=== PATIENT | male | born 1965 | race Caucasian/White ===

== ENCOUNTER 2019-06-11 05:12 | Inpatient (IN) | payer OTHER ==
[2019-06-11] MEDS: LACTATED RINGER'S 1,000 ML IV (06:12)
[2019-06-11] MEDS: CEFAZOLIN 2 GM/50 ML (PMX) 50 ML IVPB (06:33)
[2019-06-11] MEDS ORDERED: ROCURONIUM 50 MG INJ ×2 (07:07→10:15)
[2019-06-11] MEDS ORDERED: SEVOFLURANE 15 MIN (07:07)
[2019-06-11] MEDS ORDERED: PROPOFOL 20 ML (07:07)
[2019-06-11] MEDS ORDERED: EPHEDrine 25 MG/5 ML SYG (07:07)
[2019-06-11] MEDS ORDERED: MIDAZOLAM 1 MG/ML 2 ML INJ (07:07)
[2019-06-11] MEDS ORDERED: LIDOCAINE 2% (SDV) 5 ML INJ (07:07)
[2019-06-11] MEDS ORDERED: SUCCINYLCHOLINE CHLORIDE 100 MG/5 ML SYG IV (07:07)
[2019-06-11] MEDS ORDERED: PROPOFOL 200 MG INJ (07:07)
[2019-06-11] MEDS ORDERED: FAMOTIDINE 20 MG INJ (07:41)
[2019-06-11] MEDS ORDERED: ONDANSETRON 4 MG INJ (07:41)
[2019-06-11] MEDS ORDERED: DEXAMETHASONE 4 MG/ML 5 ML INJ (07:41)
[2019-06-11] MEDS ORDERED: LABETALOL HCL 20MG INJ (08:13)
[2019-06-11] MEDS: POLYMYXIN/BACITRACIN 1L IRRIG (09:04)
[2019-06-11] MEDS: GELATIN SIZE 100 SPONGE (09:04)
[2019-06-11] MEDS: BUPIVACAINE 0.25% (MPF) 30 ML INJ (09:04)
[2019-06-11] MEDS: THROMBIN 5000 UNIT (RECOTHROM) VIAL ×2 (09:05)
[2019-06-11] MEDS ORDERED: HYDROmorphONE 2 MG/ML SYG (09:17)
[2019-06-11] MEDS ORDERED: LABETALOL HCL 20MG INJ IV (09:30)
[2019-06-11] MEDS ORDERED: EPHEDrine 25 MG/5 ML SYG IV (09:30)
[2019-06-11] MEDS ORDERED: hydrALAzine 20 MG INJ IV (09:30)
[2019-06-11] MEDS ORDERED: ONDANSETRON 4 MG INJ IV ×2 (09:30→11:30)
[2019-06-11] MEDS ORDERED: PROCHLORPERAZINE 10 MG INJ IV (09:30)
[2019-06-11] MEDS ORDERED: FENTAnyl 50 MCG/ML VIAL IV ×3 (09:30)
[2019-06-11] MEDS ORDERED: MEPERIDINE 25 MG INJ IV (09:30)
[2019-06-11] MEDS ORDERED: HYDROmorphONE 1 MG/5 ML IV SYRINGE IV ×2 (09:30)
[2019-06-11] MEDS ORDERED: NEOSTIGMINE 3 MG/3 ML SYRINGE (10:52)
[2019-06-11] MEDS ORDERED: GLYCOPYRROLATE 0.4 MG INJ (10:52)
[2019-06-11] MEDS ORDERED: PROCHLORPERAZINE 10 MG TAB PO (11:30)
[2019-06-11] MEDS ORDERED: NACL 0.9% 3 ML SYG IV (11:30)
[2019-06-11] MEDS ORDERED: NALOXONE (0.4 MG/ML) INJ IV (11:30)
[2019-06-11] MEDS ORDERED: TRIMETHOBENZAMIDE 100 MG/ML VIAL IM (11:30)
[2019-06-11] MEDS ORDERED: ACETAMINOPHEN 325 MG TAB PO (11:30)
[2019-06-11] MEDS ORDERED: DIAZEPAM 5 MG TAB PO (11:30)
[2019-06-11] MEDS ORDERED: DIAZEPAM 10 MG/2 ML SYG IM (11:30)
[2019-06-11] MEDS ORDERED: DIPHENHYDRAMINE 50 MG CAP PO (11:30)
[2019-06-11] MEDS ORDERED: ZOLPIDEM 5 MG TAB PO (11:30)
[2019-06-11] MEDS ORDERED: BETHANECHOL 25 MG TAB PO (11:30)
[2019-06-11] MEDS ORDERED: HYDROCODONE/APAP (5/325) TAB PO (11:30)
[2019-06-11] MEDS ORDERED: AL HYDROX/MG HYDROX/SIMETH 30 ML CUP PO (11:30)
[2019-06-11] MEDS: HYDROmorphONE 1 MG/5 ML IV SYRINGE IV (11:59)
[2019-06-11] MEDS: DIPHENHYDRAMINE 50 MG INJ IV (12:02)
[2019-06-11] MEDS: HYDROmorphONE 0.2 MG/ML PCA IV (12:06)
[2019-06-11] MEDS: DEXTROSE 5%-0.45% NACL 1,000 ML IV (16:13)
[2019-06-11] MEDS: CEPASTAT LOZENGE MT (18:30)
[2019-06-11] MEDS: RANITIDINE 150 MG TAB PO (20:35)
[2019-06-12 05:13] LABS: HEMATOCRIT 40.1 % (42.0-52.0); HEMOGLOBIN 13.5 g/dl (14.0-18.0)
[2019-06-12] MEDS: DEXTROSE 5%-0.45% NACL 1,000 ML IV ×2 (05:21→16:00)
[2019-06-12 05:32] LABS: ANION GAP 4 (5-13); BLOOD UREA NITROGEN 7 mg/dl (7-20); CALCIUM 8.5 mg/dl (8.4-10.2); CARBON DIOXIDE 27 mmol/L (21-31); CHLORIDE 104 mmol/L (97-110); Estimated GFR > 60 mL/min (>60); GLUCOSE 126 mg/dl (70-220); POTASSIUM 3.6 mmol/L (3.5-5.1); SODIUM 135 mmol/L (135-144)
[2019-06-12] MEDS: LACTATED RINGER'S 1,000 ML IV (07:00)
[2019-06-12] MEDS ORDERED: BETHANECHOL 25 MG TAB PO (08:00)
[2019-06-12] MEDS: ASCORBIC ACID 500 MG TAB PO (09:02)
[2019-06-12] MEDS: DOCUSATE SODIUM 100 MG CAP PO (09:03)
[2019-06-12] MEDS: RANITIDINE 150 MG TAB PO (09:03)
[2019-06-12] MEDS: FERROUS SULFATE (EC) 325 MG TAB PO ×2 (09:04→12:37)
[2019-06-12] MEDS: POTASSIUM CHLORIDE (SR) 10 MEQ TAB PO (09:04)
[2019-06-12] MEDS: HYDROCODONE/APAP (5/325) TAB PO ×2 (11:02→14:52)
[2019-06-12 14:21] LABS: UR CLARITY CLEAR (CLEAR); UR COLOR YELLOW (YELLOW)
[2019-06-12 14:22] LABS: ADD UMIC YES; UR BILIRUBIN (Dip) NEGATIVE (NEGATIVE); UR BLOOD (Dip) 1+ mg/dL (NEGATIVE); UR GLUCOSE (Dip) NEGATIVE (NEGATIVE); UR KETONES (Dip) NEGATIVE (NEGATIVE); UR LEUKOCYTE ESTERASE (Dip) 1+ Leu/ul (NEGATIVE); UR NITRITE (Dip) NEGATIVE (NEGATIVE); UR TOTAL PROTEIN (Dip) NEGATIVE (NEGATIVE); UR UROBILINOGEN (Dip) NEGATIVE (NEGATIVE); URINE SPECIFIC GRAVITY (Dip) 1.005 (1.003-1.030)
[2019-06-12 14:23] LABS: UR BACTERIA OCCASIONAL /HPF (NONE SEEN); URINE RBCS 0-2 /HPF (0)
== END 2019-06-12 17:32 | disposition home or self-care (01) | DRG 473 ==
LOC: REC 05:12 → MS1 12:54
PROC: 0RG20A0 Fusion of 2 or more Cervical Vertebral Joints with Interbody Fusion Device, Anterior Approach, Anterior Column, Open Approach (ICD-10-PCS; principal; 2019-06-11 07:00)
PROC: 0RB30ZZ Excision of Cervical Vertebral Disc, Open Approach (ICD-10-PCS; 2019-06-11 07:00)
PROC: 0QB30ZZ Excision of Left Pelvic Bone, Open Approach (ICD-10-PCS; 2019-06-11 07:00)
DX: M50.222 Other cervical disc displacement at C5-C6 level (principal)
CPT/HCPCS: 72020; 72040; 80048; 81001; 85014; 85018; 86850; 86900; 86901; 86920; 88304; 97116; 97162; 97530